=== PATIENT | male | born 1960 | race Caucasian/White ===

== ENCOUNTER 2017-04-21 10:53 | Emergency (ER) | payer SELFPAY ==
[~2017-04-21] VITALS: Ht 175.3 cm; Wt 79.4 kg
[2017-04-21 10:58] VITALS: BP 146/100
== END 2017-04-21 11:28 | disposition left against medical advice (07) ==
LOC: ED 10:53
DX: Z53.21 Procedure and treatment not carried out due to patient leaving prior to being seen by health care provider (principal)